=== PATIENT | female | born 1990 | race Caucasian/White ===

== ENCOUNTER 2021-07-29 20:43 | Emergency (ER) | payer OTHER, SELFPAY ==
[2021-07-29 20:53] VITALS: BP 136/97; PULSE 118; RESP 24; O2SAT 97; BMI 21.4
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
== END 2021-07-29 21:10 | disposition other institution (70) ==
PROVIDERS: Emergency Provider Emergency Medicine
DX: F41.9 Anxiety disorder, unspecified (principal)
CPT/HCPCS: 99283

== ENCOUNTER 2025-05-21 13:36 | Emergency (ER) | payer MEDICAID, SELFPAY ==
--- NOTE | 2025-05-21 14:04 | ED_ITS ---
HPI - General Adult General Chief complaint: Overdose Stated complaint: OD AND , NARCAN GIVEN Time Seen by Provider: 05/21/25 14:04 Source: patient and EMS Mode of arrival: EMS Limitations: no limitations History of Present Illness ED Provider: Marcelina Parra PA-C HPI narrative: Patient is a 35 year old assigned female at with a history of polysubstance use and presenting to the emergency department today after an overdose. Patient states that she was smoking earlier and believes it was spiked with heroin. Patient denies any dizziness, lightheadedness, abdominal pain, nausea, vomiting, fever, chills, blurry vision, double vision, loss of vision, chest pain, difficulty breathing, shortness of breath, back pain, night sweats, pain with urination, increased urinary frequency, increased urinary urgency, blood in her urine or stool, syncope or a near syncopal episode, recent trauma or falls, bowel incontinence, bladder incontinence, or any other complaints at this time. EMS states the patient was given 2mg of narcan IV. Patient states that she is due to give any day now . Relieving factors: none Exacerbating factors: none Associated symptoms: denies other symptoms Treatments prior to arrival: other (IV narcan by EMS) Related Data Allergies Allergy/AdvReac Type Severity Reaction Status Date / Time No Known Allergies Allergy Verified 05/21/25 14:13 Review of Systems Constitutional: Constitutional: Reports no additional constitutional complaints, Denies chills, Denies fever(s) and Denies night sweats Eyes: Eyes: Reports no additional eye complaints, Denies blurry vision, Denies change in vision, Denies diplopia, Denies eye discharge, Denies loss of vision and Denies eye pain ENT: Denies dizziness Cardiovascular: Cardiovascular: Reports no additional cardiovascular complaints, Denies chest pain, Denies lightheadedness, Denies Loss of Consciousness and Denies dyspnea Respiratory: Respiratory: Reports no additional respiratory complaints and Denies dyspnea Gastrointestinal: Gastrointestinal: Reports no additional gastrointestinal co mplaints, Denies abdominal pain, Denies melena, Denies hematochezia, Denies change in bowel habits and Denies change in stool character Genitourinary: Genitourinary: Denies hematuria, Denies urinary frequency, Denies dysuria, Denies urinary incontinence, Denies urinary hesitancy and Denies urinary urgency Musculoskeletal: Musculoskeletal: Reports no additional musculoskeletal complaints, Denies numbness and Denies tingling Neurologic: Denies dizziness, Denies loss of vision, Denies numbness and Denies tingling Psychiatric: Psychiatric: Reports no additional psychiatric complaints Endocrine: Endocrine: Reports no additional endocrine complaints Hematologic/Lymphatic: Hematologic/Lymphatic: Reports no additional hematologic/lymphatic complaints Allergic/Immunologic: Allergic/Immunologic: Reports no additional allergic/immunologic complaints PMFSH Past Medical History Attestation statement: The following information was validated with the patient. Source: old records reviewed and nursing notes reviewed Social History Social History Advance Directives: No Advance Directives Information Provided: Yes Physical Exam ED Vital Signs: Vital Signs - 24 hr 05/21/25 14:06 Temperature 98.1 F Pulse Rate 72 Respiratory Rate 12 Blood Pressure 102/60 Pulse Oximetry 96 Oxygen Delivery Method Room Air BMI result Body Mass Index 18.5 Const Other: somewhat somnolent General: cooperative, no acute distress and awake Nutritional Appearance: well nourished Orientation/consciousness: patient oriented x3 HENMT Head: Yes normal to inspection and Yes atraumatic Ears: hearing grossly normal bilaterally and external ears normal General nose exam: Normal external nose present, no nasal discharge noted and no epistaxis Face and sinus: Yes normal facial exam, No abrasion and No laceration Mouth: Normal oral and palatal mucosa present, no drooling and no muffled voice Eyes General: appearance normal, both eyes and all related structures Periorbital: periorbital findings normal Eyelids: Yes eyelids normal Conjunctivae: conjunctivae normal Pupils: Equal, round and reactive pupils present EOM: EOMs intact bilaterally Neck Neck: Yes normal visual inspection and Yes full ROM Resp Effort & Inspection: normal respiratory effort and able to speak in complete sentences GI Other: obviously abdomen heart tones 120s Neuro General: patient oriented x3, moves all extremities and CN's II-XI intact bilaterally Cranial nerves: Yes Equal, round and reactive pupils present Cognition (Neuro): normal cognition Extrem General: Yes normal to inspection, Yes full ROM and Yes capillary refill normal Psych Appearance: grossly normal Mental Status: mental status grossly normal Affect: normal affect Attitude: cooperative Thought process: Normal thought process present Thought content: Normal thought content present Insight: Good insight present (Psych) Medical Decision Making Medical Decision Making MDM Narrative: Patient is a 35 year old assigned female at with a history of polysubstance use and presenting to the emergency department today after an overdose. Patient's physical exam was as noted in the physical exam portion of this note. Patient's heart tones were in the 120s with actively moving ba by. I explained my physical exam findings to the patient. I answered all questions asked by the patient. Given patient's late stage status and being post overdose - I immediately consulted with [facility] who agreed with transfer to their facility for continued monitoring. Patient verbalized agreement and understanding with this treatment plan and transfer. Differential Diagnosis Differential Diagnoses: The differential diagnosis associated with the presentation includes Late stage Final trimester Substance use Overdose Admission/Observation Consideration of admission/observation: Escalation of care including admission /observation considered Patient transferred to [facility]. Consult Healthcare Provider Management of the patient was discussed with: Meal Cooker (spoke to [facility] as noted in the MDM Rationale portion of this note. ) Independent Historian Clinical information obtained from an independent historian. History obtained from or confirmed by: EMS (EMS provided additional history and confirmed the history provided by the patient. ) Critical Care Time Critical Care Time Critical Care Time: Yes Total Critical Care Time: 36 Attestation: I spent 36 minutes of Critical Care Time with this patient. This does not include time spent on separately reported billable procedures. Discharge Plan Discharge Clinical Impression: Overdose, Patient Disposition: Xfer Other Transfer Details: [facility] - accepted by Dr. Martinez Print Language: Bur[place]ian
[2025-05-21 14:06] VITALS: BP 102/60; BP 102/66; PULSE 72; PULSE 89; RESP 12; TEMP 36.7; O2SAT 96; O2SAT 97; BMI 18.5
--- OUTSIDE RECORDS SUMMARY | 2025-05-21 14:44 | XMS_ITS | Encounter Summary ---
Author Organization [facility] Address [address] [place] [address] Care Team Providers Care Census Taker Name Role Phone Elizabeth Pruitt Primary Care Provider [phone] Encounter Details Date Type Department Care Team (Late st Contact Info) Description 03/19/2022 Dental Interim Note [facility] [address] [place] [id number] Trang Ortiz, DDS [address] [place] [address] Social History Tobacco Use Types Packs/Day Years Used Date Smoking Tobacco: Every Day Cigarettes 0.3 15 Smokeless Tobacco: Never Comments:never finishes a wh ole cig just takes a little puffs Alcohol Use Standard Drinks/Week Comments Not Currently 0 (1 standard drink = 0.6 oz pure alcohol) Last used July of last year Social Connections Answer Date Recorded Connectedness 0 02/17/2022 Financial Resource Strain Answer Date R ecorded Financial Resource Strain 0 2021 Stress Answer Date Recorded Stress 0 02/17/2022 Physical Activity Answer Date Recorded Physical Activity 0 12/25/2021 Food Insecurity Answer Date Recorded Food 0 02/17/2022 Transportation Needs Answer Date Record ed Transportation 0 02/17/2022 Housing Stability Answer Date Recorded Housing 0 02/17/2022 Safety and Environment Answer Date Clive rded Safety 0 02/17/2022 Utilities Answer Date Recorded Utilities 0 02/17/2022 Employment Answer Date Recorded Stress 0 02/17/2022 Comments No Sex and Gender Information Value Date Recorded Sex Assigned at Female 02/17/2022 1:51 PM PDT Legal Sex Female 12:55 PM PDT Gender Identity Female 02/17/2022 1:51 PM PDT Sexual Orientation Straight 02/17/2022 1: 51 PM PDT COVID-19 Exposure Response Date Recorded In the last 10 days, have jan u been in contact with someone who was confirmed or suspected to have Coronavirus/COVID-19? No / Unsure 03/07/2022 10:54 AM EDT documented as of this encounter Plan of Treatment Not on file documented as of this encounter Visit Diagnoses Not on filedocumented in this encounter Additional Health Concerns Assessment Noted Time PHQ-9 Depression Total Score: 1 02/18/20 22 4:23 PM PDT A Depression follow-up plan has been documented for the patient 02/17/2022 5:27 PM PDT documented as of this encounter Care Teams Census Taker Relationship Specialty Start Date End Date Elizabeth Pruitt PA [address] [place] [address] PCP - General Primary Care 10/19/23 documented as of this encounter
[2025-05-21 15:26] VITALS: BP 98/62; PULSE 67; RESP 14; O2SAT 100
[2025-05-21 15:35] VITALS: BP 98/62; PULSE 67; RESP 14; TEMP -17.7; TEMP 0; O2SAT 100
--- NOTE | 2025-05-21 15:37 | PC.NURSE ---
THIS RN CALLED REPORT AND GAVE EMS REPORT FOR TRANSFER TO [facility] FOR PRIMARY RN.
== END 2025-05-21 15:38 | disposition other institution (70) ==
PROVIDERS: Emergency Provider Emergency Medicine
DX: O9A.213 Injury, poisoning and certain other consequences of external causes complicating pregnancy, third trimester (principal); T40.1X4A Poisoning by heroin, undetermined, initial encounter; Z3A.38 38 weeks gestation of pregnancy; Y92.89 Other specified places as the place of occurrence of the external cause
CPT/HCPCS: 99282; 99291